=== PATIENT | female | born 1945 | race Caucasian/White ===

== ENCOUNTER 2023-02-09 13:20 | Outpatient (OUT) | payer MEDICARE, SELFPAY ==
[2023-02-05 11:14] LABS: Basophils Percent Auto 0.7 % (0.2-2.0); Eosinophils Absolute Auto 0.2 10^3/uL (0.0-0.7); Hematocrit 33.6 % (36.0-48.0); Hemoglobin 10.9 g/dL (12.0-16.0); Lymphocytes Absolute Auto 1.5 10^3/uL (1.2-3.8); Lymphocytes Percent Auto 34.7 % (20.5-60.0); Mean Corpuscular HGB Conc 32.4 g/dL (29.9-35.2); Mean Corpuscular Hemoglobin 26.9 pg (26.7-34.0); Mean Platelet Volume 10.1 fL (9.5-13.5); Monocytes Absolute Auto 0.4 10^3/uL (0.3-0.8); Monocytes Percent Auto 10.3 % (1.7-12.0); Neutrophils Absolute Auto 2.1 10^3/uL (1.4-6.5); Neutrophils Percent Auto 49.3 % (43.0-75.0); Platelet Count 222 10^3/uL (150-450); Red Blood Count 4.05 10^6/uL (4.20-5.40); Red Cell Distribution Width 13.1 % (11.0-15.0); White Blood Count 4.2 10^3/uL (4.0-11.0)
[2023-02-05 13:10] LABS: Alanine Aminotransferase 25 U/L (14-59); Albumin Globulin Ratio 1.2; Albumin Level 3.7 g/dL (3.4-5.0); Alkaline Phosphatase 63 U/L (46-116); Anion Gap 13.8; Aspartate Amino Transferase 17 U/L (15-37); BUN Creatinine Ratio 26.1; Bilirubin Total 0.4 mg/dL (0.2-1.0); Calcium 8.7 mg/dL (8.5-10.1); Chloride 107 mmol/L (98-107); Cholesterol 153 mg/dL (<=200); Estimated GFR (African America >60 (>=60); Estimated GFR (Non-African Ame >60 (>=60); Free T3 2.45 pg/mL (2.18-3.98); Glucose 122 mg/dL (74-106); HDL Cholesterol 36 mg/dL (40-60); Potassium 3.8 mmol/L (3.5-5.1); Sodium 143 mmol/L (136-145); Thyroid Stimulating Hormone 1.646 uIU/mL (0.358-3.740); Total Protein 6.7 g/dL (6.4-8.2); Triglycerides 200 mg/dL (<=150)
[2023-02-05 13:15] LABS: Chol HDL Ratio 4.3
[2023-02-05 14:40] LABS: Free T4 0.79 ng/dL (0.76-1.46)
[2023-02-05 15:32] LABS: Estimated Average Glucose 120 mg/dL; Glycohemoglobin A1C 5.8 % (4.5-6.2)
== END 2023-02-09 13:21 | disposition home or self-care (01) ==
LOC: LAB 13:20
PROVIDERS: PCP Family Medicine; Visit Provider Family Medicine
DX: Z00.00 Encounter for general adult medical examination without abnormal findings (principal); E78.5 Hyperlipidemia, unspecified; R53.83 Other fatigue; R73.09 Other abnormal glucose
CPT/HCPCS: 36415; 80053; 80061; 83036; 84439; 84443; 84481; 85025

== ENCOUNTER 2023-03-22 13:21 | Outpatient (OUT) | payer MEDICARE, SELFPAY | END 2023-03-22 13:22 | disposition home or self-care (01) | LOC: PST 13:22 | PROVIDERS: PCP Family Medicine; Visit Provider Surgery | DX: Z01.818 Encounter for other preprocedural examination (principal); Z86.010 Personal history of colon polyps ==

== ENCOUNTER 2023-04-04 06:41 | Day surgery (SDC) | payer MEDICARE, SELFPAY ==
--- NOTE | 2023-04-04 | OP_ITS ---
OPERATION DATE: ??04/04/2023 PREOPERATIVE DIAGNOSIS:? Personal history of colon polyps. POSTOPERATIVE DIAGNOSIS:? Sigmoid diverticulosis. PROCEDURE:? Colonoscopy to cecum. SURGEON:? Roberto Hollis M.D. ANESTHESIA:? Monitored anesthesia care. ESTIMATED BLOOD LOSS:? Zero. INDICATIONS AND CONSENT:? Patient is a 77-year-old female with personal history of colon polyps.? Indications, risks, benefits, alternatives of proceeding with colonoscopy were explained extensively to the patient, including the risks of bleeding, colon perforation or anesthetic complications.? All of her questions were answered.? Informed consent was obtained. PROCEDURE:? Patient brought to the operating room, placed in the left lateral decubitus position.? Monitored anesthesia care was provided.? Rectal exam was performed which showed no masses or blood.? The scope was inserted into the anal canal.? Under direct visualization was advanced.? With the aid of abdominal compression, it was advanced to the cecum where cecal markings were clearly identified.? It should be noted that the scope was changed to a pediatric scope due to spasm and tortuous colon, due to the diverticular disease.? Upon withdrawal of the scope, mucosal surfaces were carefully examined.? There was noted to be a good prep.? There were no mass lesions or polyps.? No inflammatory changes or ulcerations.? There was some moderate to severe sigmoid diverticulosis with some large mouth diverticula as well.? The scope was retroflexed in the anal canal.? There was no significant hemorrhoidal disease.? Scope was then withdrawn.? Patient tolerated procedure well, was sent to recovery room in good condition. no further surveillance colonoscopies should be required. CC:? Norman Lassiter M.D. [facility] CENTERLiliana
[2023-04-04 06:50] VITALS: BP 132/66; PULSE 57; RESP 16; TEMP 36.1; O2SAT 95; BMI 26.6
[2023-04-04] MEDS: LACTATED RINGER'S SOLUTION 1,000 ML 50 ML IV (07:19)
[2023-04-04 07:49] VITALS: BP 102/56; PULSE 52; RESP 16; TEMP 36.2; O2SAT 95
[2023-04-04 08:04] VITALS: BP 145/65; PULSE 56; RESP 16; O2SAT 96
[2023-04-04 08:19] VITALS: BP 145/70; PULSE 50; RESP 16; O2SAT 96
[2023-04-04 08:34] VITALS: BP 141/70; PULSE 50; RESP 16; O2SAT 96
[2023-04-04 08:49] VITALS: BP 133/66; PULSE 52; RESP 16; TEMP 36.2; O2SAT 96
--- NOTE | 2023-04-05 07:14 | PC.NURSE ---
Late entry: Vitals were monitored through out phase 2 as patient was hypotensive most of this phase.
== END 2023-04-04 08:49 | disposition home or self-care (01) ==
PROVIDERS: PCP Family Medicine; Visit Provider Surgery
PROC: (CPT 45378; principal; 2023-04-04 07:30)
DX: K57.30 Diverticulosis of large intestine without perforation or abscess without bleeding (principal); Z86.010 Personal history of colon polyps; I25.10 Atherosclerotic heart disease of native coronary artery without angina pectoris; I11.0 Hypertensive heart disease with heart failure; I50.30 Unspecified diastolic (congestive) heart failure; Z86.711 Personal history of pulmonary embolism; E78.00 Pure hypercholesterolemia, unspecified; Z79.899 Other long term (current) drug therapy
CPT/HCPCS: 45378; J2704

== ENCOUNTER 2023-04-18 07:59 | Outpatient (OUT) | payer MEDICARE, SELFPAY ==
--- NOTE | 2023-04-18 07:45 | NM_ITS ---
Patient: AMANDA KISER Exam Date: 04/18/2023 : 1945 Gender:F Ordering : DR Norman Lassiter . Admission #: [id number] Family : Order #: [id number] CLICK HERE TO VIEW EXAM RADIOLOGY REPORT PROCEDURE: NM JOSE FRANCISCO PERF SPECT REST STR COMPARISON: None. INDICATIONS: HYPERTENSION TECHNIQUE: Exam Description: Stress/Rest one day protocol gated SPECT Rest Imagin.1 mCi Tc-99m Cardiolite IV on 04/18/2023 Stress Imaging 30.4 mCi Tc-99m Cardiolite IV on 04/18/2023 Exercise Protocol: 0.4 mg Lexiscan given IV Heart Rate (bpm): Rest: 53 Max: 80 PMHR: 56 Blood Pressure: Rest: 140/86 Max: 162/80 Symptoms: Rest and peak stress ECG findings were normal and the exercise portion of the study was normal per attending physician Dr. De La Torre . For more details please see separate cardiac stress test report. FINDINGS: QUALITY OF STUDY: Excellent. PERFUSION DEFECT: None. LOCATION: N/A SIZE: N/A. SEVERITY: N/A. TYPE: N/A. WALL MOTION: Normal. LV SIZE: Normal. 74 mL. TID / TCD: None; 0.8 LVEF: Normal. Calculated EF 77%. SUMMARY: Myocardial perfusion imaging study is NORMAL. CONCLUSION: 1. Normal nuclear medicine myocardial perfusion scan. Dictated by: Rc Donohue M.D. on 04/19/2023 at 12:31 Approved by: Rc Donohue M.D. on 04/19/2023 at 12:38
[2023-04-18] MEDS: REGADENOSON 0.4 MG/5 ML SYRINGE IV (09:51)
--- NOTE | 2023-04-18 14:27 | P.STRESS_ITS ---
Stress Test Stress Test Allergies Allergy/AdvReac Type Severity Reaction Status Date / Time memantine [From Namenda] AdvReac Unknown Verified 03/22/23 11:34 Requesting physician: Norman Lassiter Procedure: Lexiscan Cardiolite stress test General Information: Reason for Stress Test: Chest Pain Cardiac History and Risk Factors: CAD, has a stent. Father had stroke Resting 12 - Lead Electrocardiogram: Rate & rhythm: Sinus bradycardia at a rate of 59. [place]: Normal T-waves: Normal ST-segments:Normal orientation Stress Test: Protocol: Erlin protocol was initiated, but due to fatigue and diaphoresis, the exercise component was unable to achieve target heart rate and therefore canceled.? Testing was changed to Lexiscan protocol, with injection of 0.4mg Lexiscan IV push followed by Cardiolite. Blood pressure: Initial: 140/86, Maximum: 162/80 Rate & rhythm: Patient remained in sinus rhythm during the exercise and recovery portions of the study.? The maximum heart rate was 80, which was 56% of the maximum predicted heart rate. Rare PACs noted. ST-segments & T-waves: There were no T-wave changes and no ST-segment changes when compared to the baseline EKG. Patient response/symptoms: The patient complained of fatigue, diaphoresis, and overheating . There were no symptoms similar to the chief complaint. Interpretation: This is a normal Lexiscan stress test without electrocardiographical evidence of ischemia. No reproducible chest pain. Cardiolite imaging interpretation will be reported separately. Clinical correlation required.?
== END 2023-04-18 08:00 | disposition home or self-care (01) ==
LOC: NM 08:00
PROVIDERS: PCP Family Medicine; Visit Provider Family Medicine
DX: R07.89 Other chest pain (principal); Z82.3 Family history of stroke; I25.10 Atherosclerotic heart disease of native coronary artery without angina pectoris
CPT/HCPCS: 78452; 93017; A9500; J2785

== ENCOUNTER 2023-04-24 10:08 | Outpatient (OUT) | payer MEDICARE, SELFPAY ==
--- NOTE | 2023-04-24 | MM_ITS ---
Patient: AMANDA KISER Exam Date: 04/24/2023 : 1945 Gender:F Ordering : DR Norman Lassiter . Admission #: [id number] Family : Order #: [id number] CLICK HERE TO VIEW EXAM RADIOLOGY REPORT PROCEDURE: MM TOMOSYNTHESIS SCREENING BI COMPARISON: MG MAMM SCREEN VICTOR MANUEL W CAD, 01/31/2018. MG MAMM VICTOR MANUEL SCRN W CAD DIG, 02/10/2013. INDICATIONS: Z12.31 Calculator Name NCI Breast Cancer Risk Assessment Tool 5 Year Breast Cancer Risk 1.10% Lifetime Breast Cancer Risk 2.00% Personal Breast Cancer No Personal Ovarian Cancer No Treatments None Family Cancers Sister with pancreatic cancer at age 84. LOCATION: [facility] BREAST COMPOSITION: Scattered areas fibroglandular density. FINDINGS: DIAGNOSTIC CATEGORY 1--NEGATIVE. NO CHANGE FROM COMPARISON ASSESSMENT. Scattered benign-appearing calcifications are present. Scattered benign-appearing lymph nodes are present. RIGHT BREAST: No significant suspicious finding. LEFT BREAST: No significant suspicious finding. RECOMMENDATIONS: ROUTINE MAMMOGRAM AND CLINICAL EVALUATION IN 12 MONTHS. PLEASE NOTE: A NORMAL MAMMOGRAM DOES NOT EXCLUDE THE POSSIBILITY OF BREAST CANCER. A CLINICALLY SUSPICIOUS PALPABLE LUMP SHOULD BE BIOPSIED. Dictated by: Bharathi Art MD on 04/24/2023 at 15:22 Approved by: Bharathi Art MD on 04/24/2023 at 15:23
--- NOTE | 2023-04-24 | US_ITS ---
The [address] [address] Patient Name: AMANDA KISER MRN: [id number] date: 1945 Sex: F Assigned Patient Location: [place] Current Patient Location: [place] Accession/Order Number: [id number] Exam Date: 04/24/2023 10:05 Report Date: 04/24/2023 11:24 At the request of: MILAGROS PORTER Procedure: US renal bladder EXAM: US renal bladder HISTORY: Unspecified urinary incontinence R32 COMPARISON: None. TECHNIQUE: Ultrasound of the kidneys FINDINGS: The right kidney measures 9.8 x 4.3 x 4.2 cm and appears normal. The left kidney measures 11.9 x 4.9 x 4.8 cm and contains a hyperechoic focus measuring up to 0.3 cm. There is no hydronephrosis. The urinary bladder is not fully distended. Prevoid volume is 18.3 cc. Post void volume was 2.2 cc. US/US renal bladder IMPRESSION: Left nephrolithiasis without hydronephrosis. Electronically authenticated by: DAVID MARQUEZ Date: 04/24/2023 11:24
== END 2023-04-24 10:09 | disposition home or self-care (01) ==
LOC: US 10:09
PROVIDERS: PCP Family Medicine; Visit Provider Family Medicine
DX: Z12.31 Encounter for screening mammogram for malignant neoplasm of breast (principal); I10 Essential (primary) hypertension; R32 Unspecified urinary incontinence; Z80.8 Family history of malignant neoplasm of other organs or systems; N20.0 Calculus of kidney
CPT/HCPCS: 76770; 77063; 77067

== ENCOUNTER 2024-02-08 15:57 | Outpatient (OUT) | payer MEDICARE, SELFPAY ==
[2024-02-08 16:20] LABS: Basophils Percent Auto 0.5 % (0.2-2.0); Eosinophils Absolute Auto 0.2 10^3/uL (0.0-0.7); Eosinophils Percent Auto 4.2 % (0.9-7.0); Hematocrit 41.8 % (36.0-48.0); Hemoglobin 13.5 g/dL (12.0-16.0); Immature Granulocytes Abs Auto 0.01 10^3/uL (0.00-0.03); Immature Granulocytes Pct Auto 0.2 % (0.0-0.5); Lymphocytes Absolute Auto 1.9 10^3/uL (1.2-3.8); Lymphocytes Percent Auto 34.3 % (20.5-60.0); Mean Corpuscular HGB Conc 32.3 g/dL (29.9-35.2); Mean Corpuscular Hemoglobin 29.3 pg (26.7-34.0); Mean Corpuscular Volume 90.7 fL (81.0-99.0); Mean Platelet Volume 9.9 fL (9.5-13.5); Monocytes Absolute Auto 0.4 10^3/uL (0.3-0.8); Monocytes Percent Auto 7.8 % (1.7-12.0); Neutrophils Absolute Auto 2.9 10^3/uL (1.4-6.5); Platelet Count 221 10^3/uL (150-450); Red Blood Count 4.61 10^6/uL (4.20-5.40); Red Cell Distribution Width 12.4 % (11.0-15.0); White Blood Count 5.5 10^3/uL (4.0-11.0)
[2024-02-08 16:27] LABS: Estimated Average Glucose 114 mg/dL; Glycohemoglobin A1C 5.6 % (4.5-6.2)
[2024-02-08 16:49] LABS: Alanine Aminotransferase 26 U/L (14-59); Albumin Globulin Ratio 1.2; Albumin Level 3.8 g/dL (3.4-5.0); Alkaline Phosphatase 68 U/L (46-116); Anion Gap 10.6; Aspartate Amino Transferase 18 U/L (15-37); BUN Creatinine Ratio 24.1; Bilirubin Total 0.6 mg/dL (0.2-1.0); Calcium 9.1 mg/dL (8.5-10.1); Carbon Dioxide 28.4 mmol/L (21.0-32.0); Chloride 104 mmol/L (98-107); Chol HDL Ratio 4.4; Cholesterol 169 mg/dL (<=200); Estimated GFR (African America >60 (>=60); Estimated GFR (Non-African Ame >60 (>=60); Free T3 2.21 pg/mL (2.18-3.98); Globulin 3.2 g/dL; Glucose 89 mg/dL (74-106); HDL Cholesterol 38 mg/dL (40-60); Sodium 139 mmol/L (136-145); Thyroid Stimulating Hormone 2.615 uIU/mL (0.358-3.740); Triglycerides 218 mg/dL (<=150); VLDL CHOLESTEROL 43.6 mg/dL
== END 2024-02-08 15:58 | disposition home or self-care (01) ==
LOC: LAB 15:57
PROVIDERS: PCP Family Medicine; Visit Provider Family Medicine
DX: E78.5 Hyperlipidemia, unspecified (principal); R53.83 Other fatigue; I10 Essential (primary) hypertension; E11.65 Type 2 diabetes mellitus with hyperglycemia
CPT/HCPCS: 36415; 80053; 80061; 83036; 84436; 84443; 84481; 85025

== ENCOUNTER 2024-06-25 11:32 | Outpatient (OUT) | payer MEDICARE, SELFPAY ==
--- NOTE | 2024-06-25 11:40 | MM_ITS ---
Patient Name: AMANDA KISER MR#: [id number] : 1945 Exam Date: 06/25/2024 Ordering Doctor: DR Norman Lassiter . RADIOLOGY REPORT PROCEDURE: MM TOMOSYNTHESIS SCREENING BI COMPARISON: MM TOMOSYNTHESIS SCREENING BI, 04/24/2023. MG MAMM SCREEN VICTOR MANUEL W CAD, 01/31/2018. INDICATIONS: Screening Calculator Name NCI Breast Cancer Risk Assessment Tool 5 Year Breast Cancer Risk 1.10% Lifetime Breast Cancer Risk 1.70% Personal Breast Cancer No Personal Ovarian Cancer No Treatments None Family Cancers Sister with pancreatic cancer at age 84. LOCATION: [facility] BREAST COMPOSITION: There are scattered areas of fibroglandular density. FINDINGS: DIAGNOSTIC CATEGORY 2--BENIGN FINDING. NO CHANGE FROM COMPARISON. Scattered benign-appearing calcifications are present. Scattered benign-appearing lymph nodes are present. RIGHT BREAST: No significant suspicious finding. LEFT BREAST: No significant suspicious finding. RECOMMENDATIONS: ROUTINE MAMMOGRAM AND CLINICAL EVALUATION IN 12 MONTHS. PLEASE NOTE: A NORMAL MAMMOGRAM DOES NOT EXCLUDE THE POSSIBILITY OF BREAST CANCER. A CLINICALLY SUSPICIOUS PALPABLE LUMP SHOULD BE BIOPSIED. Dictated by: Bharathi Art MD on 06/25/2024 at 14:03 Approved by: Bharathi Art MD on 06/25/2024 at 14:04
--- OUTSIDE RECORDS SUMMARY | 2024-06-25 11:44 | XMS_ITS | CCD ---
Author Organization [facility] Care Team Providers Care Moss Gatherer Name Role Phone GERMAN, DR LINARES Primary Care Unavailable HOY, DR LINARES Admitting Unavailable HOY, DR LINARES Consulting Unavailable HOY, DR LINARES Attending Unavailable HOY, DR LINARES Consulting Unavailable HOY, DR LINARES Primary Care Unavailable HOY, DR LINARES Attending Unavailable HOY, DR LINARES Admitting Unavailable HOY, DR LINARES Consulting Unavailable HOY, DR LINARES Attending Unavailable HOY, DR LINARES Admitting Unavailable HOY, DR LINARES Primary Care Unavailable HOY, DR LINARES Consulting Unavailable HOY, DR LINARES Admitting Unavailable HOY, DR LINARES Attending Unavailable HOY, DR LINARES Primary Care Unavailable HOY, DR LINARES Consulting Unavailable HOY, DR LINARES Admitting Unavailable HOY, DR LINARES Attending Unavailable HOY, DR LINARES Primary Care Unavailable HOY, DR LINARES Consulting Unavailable HOY, DR LINARES Admitting Unavailable HOY, DR LINARES Attending Unavailable HOY, DR LINARES Primary Care Unavailable HOY, DR LINARES Admitting Unavailable HOY, DR LINARES Consulting Unavailable HOY, DR LINARES Attending Unavailable HOY, DR LINARES Primary Care Unavailable WEST, DR DIMITRIOS Ware Consulting Unavailable HOY, DR LINARES Primary Care Unavailable HOY, DR LINARES Admitting Unavailable HOY, DR LINARES Consulting Unavailable HOY, DR LINARES Attending Unavailable HOY, DR LINARES Primary Care Unavailable HOY, DR LINARES Admitting Unavailable HOY, DR LINARES Consulting Unavailable HOY, DR LINARES Attending Unavailable HoyNorman Referring Unavailable NILLRobetro Attending Unavailable NILLRoberto Attending Unavailable HoyNorman Referring Unavailable HoyNorman Referring Unavailable NILLRoberto Attending Unavailable NILLRoberto Attending Unavailable Allergies Allergy Classification Reported Allergen(s) Allergy Type Date of Onset Reaction(s) Facility (1 source) Memantine; Translations: [Namenda] Drug Allergy [facility] Repository Problems Active Problems Problem Classification Problem Date Documented Date Episodic/Chronic Congestive heart failure; nonhypertensive (1 source) Unspecified diastolic (congestive) heart failure; Translations: [UNSPECIFIED DIASTOLIC HEART FAILURE] Onset: 10-28-2021 Chronic Coronary atherosclerosis and other heart disease (1 source) Atherosclerotic heart disease of [place] coronary artery without angina pectoris; Translations: [ASHD DEERING CA W/O ANGINA PECTORIS] Onset: 10-28-2021 Chronic Disorders of lipid metabolism (2 sources) Hyperlipidemia, unspecified; Translations: [Pure hypercholesterolemia, unspecified] Onset: 10-28-2021 Chronic Essential hypertension (1 source) Essential (primary) hypertension; Translations: [ESSENTIAL PRIMARY HYPERTENSION] Onset: 10-24-2021 Chronic Genitourinary symptoms and ill-defined conditions (1 source) Unspecified urinary incontinence; Translations: [UNSPECIFIED URINARY INCONTINENCE] Onset: 10-28-2021 Chronic Hypertension with complications and secondary hypertension (1 source) Hypertensive heart disease with heart failure; Translations: [HTN HEART DISEASE W/HEART FAIL] Onset: 10-28-2021 Chronic Nutritional deficiencies (1 source) Vitamin D deficiency, unspecified; Translations: [VITAMIN D DEFICIENCY UNSPECIFIED] Onset: 10-28-2021 Chronic Thyroid disorders (4 sources) Hypothyroidism, unspecified; Translations: [HYPOTHYROIDISM UNSPECIFIED] Onset: 12-26-2021 Chronic Unclassified (4 sources) CONTACT W/AND (SUSP) EXPOS COVID-19; Translations: [CONTACT W/AND (SUSP) EXPOS COVID-19] Onset: 03-14-2022 Unclassified (3 sources) COUGH, UNSPECIFIED; Translations: [COUGH, UNSPECIFIED] Onset: 03-14-2022 Past or Other Problems Problem Classification Problem Date Documented Date Episodic/Chronic Coronary atherosclerosis and other heart disease (1 source) Presence of coronary angioplasty implant and graft; Translations: [PRESENCE COR ANGPLSTY IMPLANT AND GRAFT] Onset: 10-28-2021 Episodic Deficiency and other anemia (1 source) Anemia, unspecified; Translations: [ANEMIA UNSPECIFIED] Onset: 10-28-2021 Episodic Diabetes mellitus without complication (1 source) Other abnormal glucose; Translations: [OTHER ABNORMAL GLUCOSE] Onset: 10-28-2021 Episodic Genitourinary symptoms and ill-defined conditions (4 sources) Dysuria; Translations: [DYSURIA] Onset: 12-01-2021 Episodic Malaise and fatigue (1 source) Other fatigue; Translations: [OTHER FATIGUE] Onset: 12-06-2021 Episodic Noninfectious gastroenteritis (5 sources) Noninfective gastroenteritis and colitis, unspecified; Translations: [NONINFECTIVE GE AND COLITIS UNS] Onset: 10-27-2021 Episodic Nonspecific chest pain (1 source) Chest pain, unspecified; Translations: [CHEST PAIN UNSPECIFIED] Onset: 10-28-2021 Episodic Other skin disorders (5 sources) Generalized hyperhidrosis; Translations: [GENERALIZED HYPERHIDROSIS] Onset: 10-26-2021 Episodic Other upper respiratory infections (1 source) Acute sinusitis, unspecified; Translations: [ACUTE SINUSITIS UNSPECIFIED] Onset: 10-28-2021 Episodic Residual codes; unclassified (1 source) Other amnesia; Translations: [OTHER AMNESIA] Onset: 10-28-2021 Episodic Unclassified (1 source) CONTACT W/AND (SUSP) EXPOS COVID-19; Translations: [CONTACT W/AND (SUSP) EXPOS COVID-19] Onset: 03-22-2022 Unclassified (1 source) COUGH, UNSPECIFIED; Translations: [COUGH, UNSPECIFIED] Onset: 03-13-2022 Results Test Name Value Interpretation Reference Range Facility Outside Colonoscopyon 2022 Outside Colonoscopy [id number]:1 27 Normal [facility] Facesheeton 02-14-2023 Facesheet [id number]: 127 Normal [facility] Ambulatory Visit Summaryon 0 02-13-2023 Ambulatory Visit Summary AMANDA KISER :1945 Visit Date:02/13/2023 Ambulatory Visit Instructions Your Diagnosis Personal history of colonic polyps Your Care Team Attending Physician - NIMA REEVES, Roberto Singh Primary Care Physician - Norman Porter MD Referring Physician - Norman Porter MD This Is Your Medications List diclofenac (diclofenac sodium 75 mg Oral EC Tab) fluoxetine (FLUoxetine 20 mg Cap) liothyronine (liothyronine 5 mcg Tab) metoprolol (metoprolol tartrate 100 mg Tab) Contact prescribing physician if questions or concerns donepezil (donepezil 10 mg oral tablet, disintegrating) fluticasone nasal (Flonase 0.05 mg/inh Shushan) hyoscyamine (hyoscyamine 0.125 mg oral tablet, disintegrating) pantoprazole (Protonix 40 mg Tab-DR) simvastatin (simvastatin 40 mg Tab) Procedures Performed Colonoscopy (07/03/2018), Angioplasty, Colonoscopy, Placement of stent in cardiac conduit, Tubal ligation. Discharge Vitals Heart Rate (Peripheral) 72 Respiratory Rate 16 Blood Pressure 118/72 Height 167.6 cm Height 66 in Weight 80.4 kg Weight 176.88 lb BMI 28.62 Medications What How Much When Instructions Unchanged diclofenac (diclofenac sodium 75 mg Oral EC Tab) 1 Tablets By Mouth 2 times a day Unchanged fluoxetine (FLUoxetine 20 mg Cap) 1 Capsules By Mouth Every day Unchanged liothyronine (liothyronine 5 mcg Tab) 1 Tablets By Mouth Every day Unchanged metoprolol (metoprolol tartrate 100 mg Tab) 1 Tablets By Mouth 2 times a day Unchanged donepezil (donepezil 10 mg oral tablet, disintegrating) 1 Tablets By Mouth Once a day (at bedtime) Contact prescribing physician if questions or concerns Unchanged fluticasone nasal (Flonase 0.05 mg/ inh Shushan) 1 Sprays Nasal Inhalation 2 times a day Contact prescribing physician if questions or concerns Unchanged hyoscyamine (hyoscyamine 0.125 mg oral tablet, disintegrating) 1-2 tabs By Mouth 4 times a day as needed for abdominal pain Contact prescribing physician if questions or concerns Unchanged pantoprazole (Protonix 40 mg Tab-DR) 1 Tablets By Mouth Every day Contact prescribing physician if questions or concerns Unchanged simvastatin (simvastatin 40 mg Tab) 1 Tablets By Mouth Once a day (in the evening) Contact prescribing physician if questions or concerns Allergies Namenda (Unknown) Problems Ongoing - Any problem that you are currently receiving treatment for. Anemia BMI 28.0-28.9,adult Chronic diarrhea Coronary artery disease Diastolic CHF Eczema Essential hypertension Generalized hyperhidrosis History of colon polyps History of pulmonary embolism Hypertensive heart disease with heart failure Osteopenia Overweight Personal history of colonic polyps Poor short term memory Pure hypercholesterolemia Normal [facility] Physician Referralon 023 Physician Referral [id number]: 127 Normal [facility] Covid-19 PCR (CVDTBH)on 02-22 SARS-CoV-2 (COVID-19) RNA ASHKAN+probe Ql (Unsp spec) Not detected Normal NOT DETECTED [facility] Comment on above: Result Comment: This test is not yet approved or cleared by the [place] FDA. When there are no FDA-approved or cleared tests available, and other criteria are met, FDA can make tests available under an emergency access mechanism called an Emergency Use Authorization (EUA). The EUA for this test is supported by the [place] of Health and Human Service's (HHS's) declaration that circumstances exist to justify the emergency use of in vitro diagnostics for the detection and/or diagnosis of the virus that causes COVID-19. This EUA will remain in effect (meaning this test can be used) for the duration of the COVID-19 declaration justifying emergency of IVDs, unless it is terminated or revoked by FDA (after which the test may no longer be used). When diagnostic testing is negative, the possibility of a false negative should be considered in the context of a patient's recent exposures and the presence of clinical signs and symptoms consistent with SARS-CoV-2. Performed By: #### A 1C #### [facility] [address] [place] [address] Dr. Vivi Stovall Covid-19 PCR (CVDTBH)on 02-21 SARS-CoV-2 (COVID-19) RNA ASHKAN+probe Ql (Unsp spec) Not detected Normal NOT DETECTED [facility] Comment on above: Result Comment: When diagnostic testing is negative, the possibility of a false negative should be considered in the context of a patient's recent exposures and the presence of clinical signs and symptoms consistent with SARS-CoV-2. This test is not yet approved or cleared by the [place] FDA. When there are no FDA-approved or cleared tests available, and other criteria are met, FDA can make tests available under an emergency access mechanism called an Emergency Use Authorization (EUA). The EUA for this test is supported by the [place] of Health and Human Service's declaration that circumstances exist to justify the emergency use of in vitro diagnostics for the detection and/or diagnosis of the virus that causes COVID-19. This EUA will remain in effect for the duration of the COVID-19 declaration justifying emergency of IVDs, unless it is terminated or revoked by the FDA (after which the test may no longer be used). Performed By: #### U AMIC #### [facility] [address] [place] [address] Dr. Vivi Stovall INFLUENZA A AND B AGon 03-13 INFLUENZA A AG Negative Normal NEGATIVE SEE COMMENT [facility] Comment on above: Performed By: #### A 1C #### [facility] [address] [place] [address] Dr. Vivi Stovall INFLUENZA B AG Negative Normal NEGATIVE SEE COMMENT [facility] Comment on above: Performed By: #### A 1C #### [facility] [address] [place] [address] Dr. Vivi Stovall INTERNAL CONTROLS Within Normal Limits Normal Wi thin Normal Limits [facility] Comment on above: Performed By: #### A 1C #### [facility] [address] [place] [address] Dr. Vivi Stovall T4 LABCORPon 12-27-2021 T4 [Mass/Vol] 4.9 ug/dL Normal 4.5-12.0 [facility] Comment on above: Performed By: #### U AMIC #### [facility] [address] [place] [address] Dr. Vivi Stovall FREE T3on 12-26-2021 FREE T3 2.16 pg/mlL Critically low 2.18-3.98 [facility] Comment on above: Performed By: #### A 1C #### [facility] [address] [place] [address] Dr. Vivi Stovall TSHon 12-26-2021 TSH 1.799 uIU/mL Normal 0.358-3.740 [facility] Comment on above: Performed By: #### A 1C #### [facility] [address] [place] [address] Dr. Vivi Stovall TSH RANGE SEE BELOW Normal [facility] Comment on above: Result Comment: <0.3 4 UIU/ml HYPERTHYROID 0.34-5.60 UIU/ml EUTHYROID >5.60 UIU/ml HYPOTHYROID Performed By: #### A 1C #### [facility] [address] [place] [address] Dr. Vivi Stovall CULTURE URINEon 12-03-2021 CULTURE URINE Isolate 1 Escherichia coli 50,000 CFU/ML OF ORGANISM 1 Escherichia coli ANTIBIOTIC M.I.C RX STATUS Ampicillin <=2 S F Ampicillin/Sulbactam <=2 S F Piperacillin/Tazobactam <=4 S F Cefazolin <=4 S F Ceftazidime <=1 S F Ceftriaxone <=1 S F Ertapenem <=0.5 S F Imipenem <=0.25 S F Amikacin <=2 S F Gentamicin <=1 S F Tobramycin <=1 S F Ciprofloxacin <=0.25 S F Levofloxacin <=0.12 S F Nitrofurantoin <=16 S F Trimethoprim/Sulfamethox azole <=20 S F Normal [facility] Comment on above: Performed By: #### U AMIC #### [facility] [address] [place] [address] Dr. Vivi Stovall FREE T3on 12-01-2021 FREE T3 1.32 pg/mlL Critically low 2.18-3.98 [facility] Comment on above: Performed By: #### A 1C #### [facility] [address] [place] [address] Dr. Vivi Stovall T4on 12-01-2021 T4 [Mass/Vol] 7.30 ug/dL Normal 4.80-13.90 [facility] Comment on above: Performed By: #### A 1C #### [facility] [address] [place] [address] Dr. Vivi Stovall TSHon 12-01-2021 TSH 2.374 uIU/mL Normal 0.358-3.740 [facility] Comment on above: Performed By: #### A 1C #### [facility] [address] [place] [address] Dr. Vivi Stovall TSH RANGE SEE BELOW Normal [facility] Comment on above: Result Comment: <0.3 4 UIU/ml HYPERTHYROID 0.34-5.60 UIU/ml EUTHYROID >5.60 UIU/ml HYPOTHYROID Performed By: #### A 1C #### [facility] [address] [place] [address] Dr. Vivi Stovall UA RANDOM W/MICROSCOPICon BACTERIA MODERATE Abnormal NONE SEEN [facility] Comment on above: Performed By: #### U AMIC #### [facility] [address] [place] [address] Dr. Vivi Stovall Bilirubin Ql (U) Negative Normal NEGATIVE [facility] Comment on above: Performed By: #### U AMIC #### [facility] [address] [place] [address] Dr. Vivi Stovall CAST SEEN Abnormal NONE SEEN [facility] Comment on above: Performed By: #### U AMIC #### [facility] [address] [place] [address] Dr. Vivi Stovall Clarity (U) CLEAR Normal CLEAR [facility] Comment on above: Performed By: #### U AMIC #### [facility] [address] [place] [address] Dr. Vivi Stovall Color (U) DK. YELLOW Normal YELLOW [facility] Comment on above: Performed By: #### U AMIC #### [facility] [address] [place] [address] Dr. Vivi Stovall Crystals LM Nom (Urine sed) NONE SEEN Normal NONE SEEN [facility] Comment on above: Performed By: #### U AMIC #### [facility] [address] [place] [address] Dr. Vivi Stovall Epithelial cells LM Ql (Urine sed) MODERATE Abnormal NONE SEEN /RARE [facility] Comment on above: Performed By: #### U AMIC #### [facility] [address] [place] [address] Dr. Vivi Stovall Glucose Ql (U) Negative Normal NEGATIVE [facility] Comment on above: Performed By: #### U AMIC #### [facility] [address] [address] [address] Vivi Stovall Hemoglobin Ql (U) Negative Normal NEGATIVE [facility] Comment on above: Performed By: #### U AMIC #### [facility] [address] [address] [address] Vivi Stovall Ketones Ql (U) 15 mg/dl Abnormal NEGATIVE [facility] Comment on above: Performed By: #### U AMIC #### [facility] [address] [address] [address] Vvii Stovall LEUKOCYTES SMALL Abnormal NEGATIVE [facility] Comment on above: Performed By: #### U AMIC #### [facility] [address] [address] [address] Vivi Stovall MUCOUS TRACE Abnormal NONE SEEN [facility] Comment on above: Performed By: #### U AMIC #### [facility] [address] [address] [address] Vivi Stovall Nitrite Ql (U) Negative Normal NEGATIVE [facility] Comment on above: Performed By: #### U AMIC #### [facility] [address] [address] [address] Vivi Stovall pH (U) 5.5 [pH] Normal 5-9 [facility] Comment on above: Performed By: #### U AMIC #### [facility] [address] [address] [address] Vivi Stovall RBC 2-5 Abnormal 0-2 [facility] Comment on above: Performed By: #### U AMIC #### [facility] [address] [address] [address] Vivi Stovall SPEC GRAVITY 1.025 Normal 1.005-<=1.025 [facility] Comment on above: Performed By: #### U AMIC #### [facility] [address] [address] [address] Vivi Stovall UA PROTEIN TRACE Normal NEGATIVE/ TRACE [facility] Comment on above: Performed By: #### U AMIC #### [facility] [address] [place] [address] Dr. Vivi Stovall Urobilinogen Qn (U) 1.0 {Jazmyne'U}/dL Normal 0.2 - 1. 0 [facility] Comment on above: Performed By: #### U AMIC #### [facility] [address] [place] [address] Dr. Vivi Stovall WBC 5-10 Abnormal NONE SEEN [facility] Comment on above: Performed By: #### U AMIC #### [facility] [address] [place] [address] Dr. Vivi Stovall CULTURE URINEon 10-28-2021 CULTURE URINE Isolate 1 Escherichia coli >100,000 cfu/mL of ORGANISM 1 Escherichia coli ANTIBIOTIC M.I.C RX STATUS Ampicillin <=2 S F Ampicillin/Sulbactam <=2 S F Piperacillin/Tazobactam <=4 S F Cefazolin <=4 S F Ceftazidime <=1 S F Ceftriaxone <=1 S F Ertapenem <=0.5 S F Imipenem <=0.25 S F Amikacin <=2 S F Gentamicin <=1 S F Tobramycin <=1 S F Ciprofloxacin <=0.25 S F Levofloxacin <=0.12 S F Nitrofurantoin <=16 S F Trimethoprim/Sulfamethox azole <=20 S F Normal [facility] Comment on above: Performed By: #### A 1C #### [facility] [address] [place] [address] Dr. Vivi Stovall INSULINon 10-27-2021 Insulin 14.7 uIU/mL Normal 2.6-24.9 [facility] Comment on above: Performed By: #### I NSULIN #### [facility] [address] [place] [address] Dr. Vivi Stovall BNPon 10-26-2021 Natriuretic peptide B (Bld) [Mass/Vol] 166.0 pg/mL Normal <=1,800.0 [facility] Comment on above: Performed By: #### C MP, BNP, LIPID, T7, TSH #### [facility] [address] [place] [address] Dr. Vivi Stovall C. DIFF PCRon 10-26-2021 C. DIFFICILE PCR Negative Normal NEGATIVE [facility] Comment on above: Performed By: #### U AMIC #### [facility] [address] [address] [address] Vivi Stovall CBC AUTO DIFFon 10-26-2021 BASO # 0.0 103/ul Normal 0.0-0.1 [facility] Comment on above: Performed By: #### U AMIC #### [facility] [address] [place] [address] Dr. Vivi Stovall Basophils/100 WBC (Bld) 0.7 % Normal 0.2-2.0 [facility] Comment on above: Performed By: #### U AMIC #### [facility] [address] [place] [address] Dr. Vivi Stovall EO # 0.3 103/ul Normal 0.0-0.7 [facility] Comment on above: Performed By: #### U AMIC #### [facility] [address] [place] [address] Dr. Vivi Stovall Eosinophils/100 WBC (Bld) 6.1 % Normal 0.9-7.0 [facility] Comment on above: Performed By: #### U AMIC #### [facility] [address] [place] [address] Dr. Vivi Stovall Erythrocyte distribution width (RBC) [Ratio] 14.0 % Normal 11.0-15.0 [facility] Comment on above: Performed By: #### U AMIC #### [facility] [address] [place] [address] Dr. Vivi Stovall Hematocrit (Bld) [Volume fraction] 41.0 % Normal 36.0-48.0 [facility] Comment on above: Performed By: #### U AMIC #### [facility] [address] [place] [address] Dr. Vivi Stovall Hemoglobin (Bld) [Mass/Vol] 13.7 g/dL Normal 12.0-16.0 [facility] Comment on above: Performed By: #### U AMIC #### [facility] [address] [address] [address] Vivi Stovall IG # 0.00 10e3/ul Normal 0.00-0.03 [facility] Comment on above: Performed By: #### U AMIC #### [facility] [address] [address] [address] Vivi Stovall IG % 0.0 % Normal 0.0-0.5 [facility] Comment on above: Performed By: #### U AMIC #### [facility] [address] [address] [address] Vivi Stovall LYMPH # 1.6 103/ul Normal 1.2-3.8 [facility] Comment on above: Performed By: #### U AMIC #### [facility] [address] [place] [address] Dr. Vivi Stovall Lymphocytes/100 WBC (Bld) 35.4 % Normal 20.5-60.0 [facility] Comment on above: Performed By: #### U AMIC #### [facility] [address] [address] [address] Vivi Stovall MANUAL DIFF REQ NO Normal [facility] Comment on above: Performed By: #### U AMIC #### [facility] [address] [address] [address] Vivi Stovall MCH (RBC) [Entitic mass] 29.2 pg Normal 26.7-34.0 [facility] [facility] Comment on above: Performed By: #### U AMIC #### [facility] [address] [address] [address] Vivi Stovall MCHC (RBC) [Mass/Vol] 33.4 g/dL Normal 29.9-35.2 [facility] Comment on above: Performed By: #### U AMIC #### [facility] [address] [address] [address] Vivi Stovall MCV (RBC) [Entitic vol] 87.4 fL Normal 81.0-99.0 [facility] Comment on above: Performed By: #### U AMIC #### [facility] [address] [address] [address] Vivi Stovall MONO # 0.5 103/ul Normal 0.3-0.8 [facility] Comment on above: Performed By: #### U AMIC #### [facility] [address] [address] [address] Vivi Stovall Monocytes/100 WBC (Bld) 10.5 % Normal 1.7-12.0 [facility] Comment on above: Performed By: #### U AMIC #### [facility] [address] [place] [address] Dr. Vivi Stovall NEUT # 2.2 103/ul Normal 1.4-6.5 [facility] Comment on above: Performed By: #### U AMIC #### [facility] [address] [place] [address] Dr. Vivi Stovall Neutrophils/100 WBC (Bld) 47.3 % Normal 43.0-75.0 [facility] Comment on above: Performed By: #### U AMIC #### [facility] [address] [place] [address] Dr. Vivi Stovall Platelet mean volume (Bld) [Entitic vol] 9.4 fL Critically low 9.5-13.5 [facility] Comment on above: Performed By: #### U AMIC #### [facility] [address] [place] [address] Dr. Vivi Stovall PLT 220 103/ul Normal 150-450 [facility] Comment on above: Performed By: #### U AMIC #### [facility] [address] [place] [address] Dr. Vivi Stovall RBC 4.69 106/ul Normal 4.20-5.40 [facility] Comment on above: Performed By: #### U AMIC #### [facility] [address] [place] [address] Dr. Vivi Stovall WBC 4.6 103/ul Normal 4.0-11.0 [facility] Comment on above: Performed By: #### U AMIC #### [facility] [address] [place] [address] Dr. Viiv Stovall FREE THYROXINE INDEX T7on FTI 3.26 Normal [facility] Comment on above: Performed By: #### C MP, BNP, LIPID, T7, TSH #### [facility] [address] [place] [address] Dr. Vivi Stovall T3U 34.0 % Normal 23.5-40.5 [facility] Comment on above: Performed By: #### C MP, BNP, LIPID, T7, TSH #### [facility] [address] [place] [address] Dr. Vivi Stovall T4 [Mass/Vol] 9.60 ug/dL Normal 5.53-11.00 [facility] Comment on above: Performed By: #### C MP, BNP, LIPID, T7, TSH #### [facility] [address] [place] [address] Dr. Vivi Stovall GI PANEL (PCR)on 10-26-2021 Adenovirus F 40/41 Not detected Normal NOT DETECTED [facility] Comment on above: Performed By: #### G IPANEL #### [facility] [address] [place] [address] Dr. Vivi Stovall Astrovirus Not detected Normal NOT DETECTED [facility] Comment on above: Performed By: #### G IPANEL #### [facility] [address] [place] [address] Dr. Vivi Avelar. Diff toxin A/B Not detected Normal NOT DETECTED [facility] Comment on above: Performed By: #### G IPANEL #### [facility] [address] [place] [address] Dr. Vivi Stovall Campylobacter Not detected Normal NOT DETECTED [facility] Comment on above: Performed By: #### G IPANEL #### [facility] [address] [place] [address] Dr. Vivi Stovall Cryptosporidium Not detected Normal NOT DETECTED [facility] Comment on above: Performed By: #### G IPANEL #### [facility] [address] [place] [address] Dr. Vivi Stovall Cyclos. Cayetanensis Not detected Normal NOT DETECTED [facility] Comment on above: Performed By: #### G IPANEL #### [facility] [address] [address] [address] Vivi Stovall E. Coli O157 Not Applicable Normal Not Applicable [facility] Comment on above: Performed By: #### G IPANEL #### [facility] [address] [address] [address] Vivi Stovall E. histolytica Not detected Normal NOT DETECTED [facility] Comment on above: Performed By: #### G IPANEL #### [facility] [address] [address] [address] Vivi Stovall EAEC Not detected Normal NOT DETECTED [facility] Comment on above: Performed By: #### G IPANEL #### [facility] [address] [place] [address] Dr. Vivi Stovall EIEC Not detected Normal NOT DETECTED [facility] Comment on above: Performed By: #### G IPANEL #### [facility] [address] [place] [address] Dr. Vivi Stovall EPEC Not detected Normal NOT DETECTED [facility] Comment on above: Performed By: #### G IPANEL #### [facility] [address] [place] [address] Dr. Vivi Stovall ETEC Not detected Normal NOT DETECTED [facility] Comment on above: Performed By: #### G IPANEL #### [facility] [address] [place] [address] Dr. Vivi Stovall G. Lamblia Not detected Normal NOT DETECTED [facility] Comment on above: Performed By: #### G IPANEL #### [facility] [address] [place] [address] Dr. Vivi SANTOSANEL CONTROLS PASSED Normal [facility] Comment on above: Performed By: #### G IPANEL #### [facility] [address] [place] [address] Dr. Vivi SANTOSNL DOUGIE HEADER GI PANEL BACTERIA Normal T [facility] Comment on above: Performed By: #### G IPANEL #### [facility] [address] [address] [address] Vivi HENRY ECOLI GI PANEL DIARRHEAGEN IC E.COLI / SHIGELLA Normal [facility] Comment on above: Performed By: #### G IPANEL #### [facility] [address] [address] [address] Vivi HENRY INFO SEE BELOW Normal [facility] Comment on above: Result Comment: EAEC - Enteroaggregative E. Coli EPEC- Enteropathogenic E. Coli ETEC- Enterotoxigenic E. Coli lt/st STEC- Shigella-like toxin-producing E. Coli stx1/stx2 EIEC- Shigella/Enteroinvasive E. Coli Performed By: #### G IPANEL #### [facility] [address] [address] [address] Vivi HENRY PARASITES GI PANEL PARASITES Normal [facility] Comment on above: Performed By: #### G IPANEL #### [facility] [address] [address] [address] Vivi HENRY VIRUS GI PANEL VIRUSES Normal [facility] Comment on above: Performed By: #### G IPANEL #### [facility] [address] [address] [address] Vivi Stovall Norovirus GI/GII Not detected Normal NOT DETECTED [facility] Comment on above: Performed By: #### G IPANEL #### [facility] [address] [address] [address] Vivi Stovall P. Shigelloides Not detected Normal NOT DETECTED [facility] Comment on above: Performed By: #### G IPANEL #### [facility] [address] [place] [address] Dr. Vivi Stovall Rotavirus A Not detected Normal NOT DETECTED [facility] Comment on above: Performed By: #### G IPANEL #### [facility] [address] [place] [address] Dr. Vivi Stovall Salmonella Not detected Normal NOT DETECTED [facility] Comment on above: Performed By: #### G IPANEL #### [facility] [address] [address] [address] Vivi Stovall Sapovirus Not detected Normal NOT DETECTED [facility] Comment on above: Performed By: #### G IPANEL #### [facility] [address] [place] [address] Dr. Vivi Stovall STEC Not detected Normal NOT DETECTED [facility] Comment on above: Performed By: #### G IPANEL #### [facility] [address] [place] [address] Dr. Vivi Stovall Vibrio Not detected Normal NOT DETECTED [facility] Comment on above: Performed By: #### G IPANEL #### [facility] [address] [place] [address] Dr. Vivi Stovall Vibrio Cholera Not detected Normal NOT DETECTED [facility] Comment on above: Performed By: #### G IPANEL #### [facility] [address] [place] [address] Dr. Vivi Stovall Y. Enterocolitica Not detected Normal NOT DETECTED [facility] Comment on above: Performed By: #### G IPANEL #### [facility] [address] [place] [address] Dr. Vivi Stovall GLYCOHEMOGLOBIN A1Con 2021 ADA RECOMMENDATION ADA THERAPEUTIC TARG ET 6.0 - 7.0 ACTION SUGGESTED > 7.0 Normal [facility] Comment on above: Performed By: #### A 1C #### [facility] [address] [place] [address] Dr. Vivi Stovall Glucose [Mass/Vol] 123 mg/dL Normal [facility] Comment on above: Performed By: #### A 1C #### [facility] [address] [place] [address] Dr. Vivi Stovall HbA1c (Bld) [Mass fraction] 5.9 % Normal <=6.0 [facility] Comment on above: Performed By: #### A 1C #### [facility] [address] [place] [address] Dr. Vivi Stovall IRONon 10-26-2021 Iron [Mass/Vol] 82.0 ug/dL Normal 37.0-170.0 [facility] Comment on above: Performed By: #### U AMIC #### [facility] [address] [address] [address] Vivi Stovall LIPID PROFILEon 10-26-2021 CHOL-HDL RATIO NORM SEE BELOW Normal [facility] Comment on above: Result Comment: 3.3 - 4.4 LOW RISK 4.4 - 7.1 AVERAGE RISK 7.1 - 11.0 MODERATE RISK >11.0 HIGH RISK Performed By: #### C MP, BNP, LIPID, T7, TSH #### [facility] [address] [address] [address] Vivi Stovall Cholesterol [Mass/Vol] 174 mg/dL Normal <=200 [facility] Comment on above: Performed By: #### C MP, BNP, LIPID, T7, TSH #### [facility] [address] [address] [address] Vivi Stovall Cholesterol in HDL [Mass/Vol] 34 mg/dL Critically low 40-60 [facility] Comment on above: Performed By: #### C MP, BNP, LIPID, T7, TSH #### [facility] [address] [address] [address] Vivi Stovall Cholesterol in LDL [Mass/Vol] 91.2 mg/dL Normal [facility] Comment on above: Performed By: #### C MP, BNP, LIPID, T7, TSH #### [facility] [address] [address] [address] Vivi Stovall Cholesterol.total/C holesterol in HDL [Mass ratio] 5.1 {ratio} Normal [facility] Comment on above: Performed By: #### C MP, BNP, LIPID, T7, TSH #### [facility] [address] [address] [address] Vivi Stovall HDL NORMAL > or = 60 mg/dl - LO W CARDIOVASCULAR RISK <40 mg/dl - HIGH CARDIOVASCULAR RISK Normal [facility] Comment on above: Performed By: #### C MP, BNP, LIPID, T7, TSH #### [facility] [address] [address] [address] Vivi Stovall LDL CALC NORMAL SEE BELOW Normal [facility] Comment on above: Result Comment: <100 mg/dl OPTIMAL 100 - 129 mg/dl NEAR OR ABOVE OPTIMAL 130 - 159 mg/dl BORDERLINE HIGH 160 - 189 mg/dl HIGH >190 mg/dl VERY HIGH Performed By: #### C MP, BNP, LIPID, T7, TSH #### [facility] [address], [place] [address] Dr. Vivi Stovall Triglyceride [Mass/Vol] 244 mg/dL Critically high <=150 [facility] Comment on above: Performed By: #### C MP, BNP, LIPID, T7, TSH #### [facility] [address], [place] [address] Dr. Vivi Stovall VLDL CALC 48.8 mg/dL Normal [facility] Comment on above: Performed By: #### C MP, BNP, LIPID, T7, TSH #### [facility] [address], [place] [address] Dr. Vivi Stovall NM STRESS/REST MULTIon 10-26 NM STRESS/REST MULTI Patient: AMANDA KISER Exam Date: 10/26/2021 : 1945 Gender:F Ordering : DR NORMAN PORTER . Admission #: [id number] Family : Order #: [id number] CLICK HERE TO VIEW EXAM RADIOLOGY REPORT PROCEDURE: RADIONUCLIDE IMAGING STRESS/REST MULTI COMPARISON: None. INDICATIONS: Atherosclerosis of coronary artery without angina pectoris, excessive sweating, hypertension TECHNIQUE: Exam Description: Stress/Rest one day protocol gated SPECT Rest Imagin.4 mCi Tc-99m Cardiolite IV on 10/26/2021 Stress Imaging 30.4 mCi Tc-99m Cardiolite IV on 10/26/2021 Exercise Protocol: 0.4 mg Lexiscan given IV Heart Rate (bpm): Rest: 51 Max: 76 PMHR: 53 Blood Pressure: Rest: 152/86 Max: 156/80 Symptoms: Rest and peak stress ECG findings were normal and the exercise portion of the study was normal per attending physician Dr. De La Torre . For more details please see separate cardiac stress test report. FINDINGS: QUALITY OF STUDY: Excellent. PERFUSION DEFECT: None. LOCATION: N/A SIZE: N/A. SEVERITY: N/A. TYPE: N/A. WALL MOTION: LV SIZE: Normal. 69 mL. TID / TCD: None; 0.8 LVEF: Normal. Calculated EF 72%. SUMMARY: Myocardial perfusion imaging study is NORMAL. CONCLUSION: 1. No reversible ischemia 2. Normal exercise test Dictated by: Dimitrios Art MD on 10/27/2021 at 08:51 Approved by: Dimitrios Art MD on 10/27/2021 at 08:53 Normal [facility] PROF 14(COMP METB)on 022 Albumin [Mass/Vol] 3.9 g/dL Normal 3.4-5.0 [facility] Comment on above: Performed By: #### C MP, BNP, LIPID, T7, TSH #### [facility] [address] [place] [address] Dr. Vivi Stovall Albumin/Globulin [Mass ratio] 1.2 {ratio} Normal [facility] Comment on above: Performed By: #### C MP, BNP, LIPID, T7, TSH #### [facility] [address] [place] [address] Dr. Vivi Stovall ALP [Catalytic activity/Vol] 73 U/L Normal 46-116 [facility] Comment on above: Performed By: #### C MP, BNP, LIPID, T7, TSH #### [facility] [address] [place] [address] Dr. Vivi Stovall ALT [Catalytic activity/Vol] 22 U/L Normal 14-59 [facility] Comment on above: Performed By: #### C MP, BNP, LIPID, T7, TSH #### [facility] [address] [place] [address] Dr. Vivi Stovall Anion gap [Moles/Vol] 16.0 mmol/L Normal [facility] Comment on above: Performed By: #### C MP, BNP, LIPID, T7, TSH #### [facility] [address] [place] [address] Dr. Vivi Stovall AST [Catalytic activity/Vol] 18 U/L Normal 15-37 [facility] Comment on above: Performed By: #### C MP, BNP, LIPID, T7, TSH #### [facility] [address] [place] [address] Dr. Vivi Stovall Bilirubin [Mass/Vol] 0.5 mg/dL Normal 0.2-1.3 [facility] Comment on above: Performed By: #### C MP, BNP, LIPID, T7, TSH #### [facility] [address] [address] [address] Vivi Stovall Calcium [Mass/Vol] 8.6 mg/dL Normal 8.5-10.1 [facility] Comment on above: Performed By: #### C MP, BNP, LIPID, T7, TSH #### [facility] [address] [address] [address] Vivi Stovall Chloride [Moles/Vol] 104 mmol/L Normal 98-107 [facility] Comment on above: Performed By: #### C MP, BNP, LIPID, T7, TSH #### [facility] [address] [address] [address] Vivi Stovall CO2 [Moles/Vol] 27.1 mmol/L Normal 22.0-30.0 [facility] Comment on above: Performed By: #### C MP, BNP, LIPID, T7, TSH #### [facility] [address] [address] [address] Vivi Stovall Creatinine [Mass/Vol] 0.99 mg/dL Normal 0.52-1.04 [facility] Comment on above: Performed By: #### C MP, BNP, LIPID, T7, TSH #### [facility] [address] [address] [address] Vivi Stovall EGFR-AF CITIZEN [place] >60 Normal >=60 [facility] Comment on above: Performed By: #### C MP, BNP, LIPID, T7, TSH #### [facility] [address] [address] [address] Vivi Stovall EGFR-NON AF CITIZEN OF [place] 54 mL/min/1.73m2 Critically low >=60 [facility] Comment on above: Performed By: #### C MP, BNP, LIPID, T7, TSH #### [facility] [address] [address] [address] Vivi Stovall Globulin (S) [Mass/Vol] 3.2 g/dL Normal [facility] Comment on above: Performed By: #### C MP, BNP, LIPID, T7, TSH #### [facility] [address] [place] [address] Dr. Vivi Stovall Glucose [Mass/Vol] 106 mg/dL Normal 74-106 [facility] Comment on above: Performed By: #### C MP, BNP, LIPID, T7, TSH #### [facility] [address] [place] [address] Dr. Vivi Stovall Potassium [Moles/Vol] 4.1 mmol/L Normal 3.4-5.0 [facility] Comment on above: Performed By: #### C MP, BNP, LIPID, T7, TSH #### [facility] [address] [place] [address] Dr. Vivi Stovall Protein [Mass/Vol] 7.1 g/dL Normal 6.1-8.2 [facility] Comment on above: Performed By: #### C MP, BNP, LIPID, T7, TSH #### [facility] [address] [place] [address] Dr. Vivi Stovall Sodium [Moles/Vol] 143 mmol/L Normal 137-145 [facility] Comment on above: Performed By: #### C MP, BNP, LIPID, T7, TSH #### [facility] [address] [place] [address] Dr. Vivi Stovall Urea nitrogen [Mass/Vol] 22.0 mg/dL Critically high 7.0-18.0 [facility] Comment on above: Performed By: #### C MP, BNP, LIPID, T7, TSH #### [facility] [address] [place] [address] Dr. Vivi Stovall Urea nitrogen/Creatinine [Mass ratio] 22.2 mg/mg Normal [facility] Comment on above: Performed By: #### C MP, BNP, LIPID, T7, TSH #### [facility] [address] [place] [address] Dr. Vivi Stovall TSHon 10-26-2021 TSH 5.412 uIU/mL Critically high 0.470-4.680 [facility] Comment on above: Performed By: #### C MP, BNP, LIPID, T7, TSH #### [facility] [address] [address] [address] Vivi Stovall TSH RANGE SEE BELOW Normal [facility] Comment on above: Result Comment: <0.3 4 UIU/ml HYPERTHYROID 0.34-5.60 UIU/ml EUTHYROID >5.60 UIU/ml HYPOTHYROID Performed By: #### C MP, BNP, LIPID, T7, TSH #### [facility] [address] [place] [address] Dr. Vivi Stovall UA RANDOM W/MICROSCOPICon BACTERIA LARGE Abnormal NONE SEEN [facility] Comment on above: Performed By: #### U AMIC #### [facility] [address] [place] [address] Dr. Vivi Stovall Bilirubin Ql (U) Negative Normal NEGATIVE [facility] Comment on above: Performed By: #### U AMIC #### [facility] [address] [place] [address] Dr. Vivi Stovall CAST NONE SEEN Normal NONE SEEN [facility] Comment on above: Performed By: #### U AMIC #### [facility] [address] [place] [address] Dr. Vivi Stovall Clarity (U) SL CLOUDY Abnormal CLEAR [facility] Comment on above: Performed By: #### U AMIC #### [facility] [address] [place] [address] Dr. Vivi Stovall Color (U) YELLOW Normal YELLOW [facility] Comment on above: Performed By: #### U AMIC #### [facility] [address] [place] [address] Dr. Vivi Stovall Crystals LM Nom (Urine sed) NONE SEEN Normal NONE SEEN [facility] Comment on above: Performed By: #### U AMIC #### [facility] [address] [place] [address] Dr. Vivi Stovall Epithelial cells LM Ql (Urine sed) MODERATE Abnormal NONE SEEN /RARE [facility] Comment on above: Performed By: #### U AMIC #### [facility] [address] [address] [address] Vivi Stovall Glucose Ql (U) Negative Normal NEGATIVE [facility] Comment on above: Performed By: #### U AMIC #### [facility] [address] [address] [address] Vivi Stovall Hemoglobin Ql (U) Negative Normal NEGATIVE [facility] Comment on above: Performed By: #### U AMIC #### [facility] [address] [address] [address] Vivi Stovall Ketones Ql (U) Negative Normal NEGATIVE [facility] Comment on above: Performed By: #### U AMIC #### [facility] [address] [address] [address] Vivi Stovall LEUKOCYTES SMALL Abnormal NEGATIVE [facility] Comment on above: Performed By: #### U AMIC #### [facility] [address] [address] [address] Vivi Stovall MUCOUS SMALL Abnormal NONE SEEN The [facility] Comment on above: Performed By: #### U AMIC #### [facility] [address] [address] [address] Vivi Stovall Nitrite Ql (U) Positive Abnormal NEGATIVE The [facility] Comment on above: Performed By: #### U AMIC #### [facility] [address] [place] [address] Dr. Vivi Stovall pH (U) 5.5 [pH] Normal 5-9 The [facility] Comment on above: Performed By: #### U AMIC #### [facility] [address] [place] [address] Dr. Vivi Stovall RBC NONE SEEN Abnormal 0-2 The [facility] Comment on above: Performed By: #### U AMIC #### [facility] [address] [address] [address] Vivi Stovall SPEC GRAVITY 1.025 Normal 1.005-<=1.025 The [facility] Comment on above: Performed By: #### U AMIC #### [facility] [address] [place] [address] Dr. Vivi Stovall UA PROTEIN Negative Normal NEGATIVE/ TRACE The [facility] Comment on above: Performed By: #### U AMIC #### [facility] [address] [address] [address] Vivi Stovall Urobilinogen Qn (U) 0.2 {Jazmyne'U}/dL Normal 0.2 - 1. 0 [facility] Comment on above: Performed By: #### U AMIC #### [facility] [address] [place] [address] Dr. Vivi Stovall WBC 5-10 Abnormal NONE SEEN [facility] Comment on above: Performed By: #### U AMIC #### [facility] [address] [place] [address] Dr. Vivi Stovall VITAMIN D 25 OHon 10-26-2021 VIT D 25-OH 30.3 ng/mL Normal [facility] Comment on above: Performed By: #### U AMIC #### [facility] [address] [place] [address] Dr. Vivi Stovall VIT D RANGES SEE BELOW Normal The [facility] Comment on above: Result Comment: <20 ng/mL Vit D deficient 20 - <30 ng/mL Vit D insufficient 30 - 100 ng/mL Vit D sufficient >100 ng/mL Potential Toxicity Performed By: #### U AMIC #### [facility] [address] [place] [address] Dr. Vivi Stovall ECHOCARDIO M/2D COMPLETEon 0 10-21-2021 ECHOCARDIO M/2D COMPLETE Patient: AMANDA KISER Exam Date: 10/21/2021 : 1945 Gender:F Ordering : DR NORMAN PORTER . Admission #: [id number] Family : Order #: [id number] CLICK HERE TO VIEW EXAM ECHOCARDIOGRAM REPORT PROCEDURE: CARDIO PULMONARY ECHOCARDIO M/2D COMP INDICATIONS: Chest pain, hypertension, s/p PTCA COMPARISON: None. DESCRIPTION: COMPLETE ECHOCARDIOGRAM Real-time transthoracic echocardiography with 2D, M-mode, spectral and color flow Doppler performed. QUALITY: Technical quality was good. LEFT VENTRICLE: Normal chamber size. Mild concentric left ventricular hypertrophy. Global left ventricular systolic function is normal. LV EF: Normal left ventricular ejection fraction, (>55%). DIASTOLIC: Grade I diastolic dysfunction. ATRIAL SEPTUM: Visually appears intact. LEFT ATRIUM: Normal chamber size. RIGHT ATRIUM: Normal chamber size. RIGHT VENTRICLE: Normal chamber size. Normal right ventricular systolic function. TRICUSPID VALVE: Normal mobility and thickness. No stenosis with trivial regurgitation. Doppler studies reveal moderately (45-60) elevated right sided pressures. RVSP 49 mmHg MITRAL VALVE: Normal mobility and thickness. No evidence of mitral valve stenosis. There is no mitral annular calcification. Trivial mitral regurgitation. AORTIC VALVE: Normal trileaflet appearance. No visible sclerosis. Normal leaflet mobility. No evidence of aortic valve stenosis. AORTIC ROOT: Normal diameter and appearance. Ascending aorta is normal in size. PULMONIC VALVE: Normal thickness and mobility. No stenosis. PERICARDIUM: No evidence of pericardial effusion. IVC: Collapses with inspirations. PLEURA: CONCLUSION: 1. Normal ventricular systolic function. LVEF is 60%. 2. Grade 1, mild diastolic dysfunction. 3. No significant valvular dysfunction. 4. Moderately elevated right-sided pressures. 5. No pericardial effusion. Adult Echocardiography Procedure Report Left Ventricle LVEDD (3.7 - 5.6 cm): 4.66 cm LVESD (2.2 - 4.0 cm): 3.16 cm LVIVS thickness (0.6 - 1.2 cm): 1.25 cm LVPW thickness (0.5 - 1.0 cm): 1.05 cm e': 6.91 cm/s E - e': 8.60 LVOT Area (cm2): 4.52 cm2 LVOT Diameter 2.40 cm Left Ventricular Ejection Fraction: 60 % Left Atrium LA Volume Index (2D A2C): 27.70 ml/m2 Left Atrium Systolic Dimension: 4.20 cm Left Atrium Systolic Area(A2C): 18.20 cm2 Left Atrium Systolic Volume(A2C): 30135 mm3 Mitral Valve MV E to A Ratio: 0.60 Mitral Valve A-Wave Peak Velocity: 92.80 cm/s Mitral Valve E-Wave Peak Velocity: 59.70 cm/s Deceleration Time: 351 ms Right Ventricle Aorta AO Root Diam: 3.50 cm Aortic Valve AoV Area (Peak Manfred): 2.97 cm2 Peak Velocity(Antegrade Flow): 114.00 cm/s Peak Gradient(Antegrade Flow): 5 mm[Hg] Tricuspid Valve Pulmonic Valve Peak Velocity: 91.70 cm/s Peak Gradient: 3 mm[Hg] Right Atrium Dictated by: Brandon Vickers M.D. on 10/21/2021 at 11:13 Approved by: Brandon Vickers M.D. on 10/21/2021 at 11:16 Normal The [facility] Covid-19 PCR (CVDTBH)on SARS-CoV-2 (COVID-19) RNA ASHKAN+probe Ql (Unsp spec) Not detected Normal NOT DETECTED The [facility] Comment on above: Result Comment: This test is not yet approved or cleared by the [place] FDA. When there are no FDA-approved or cleared tests available, and other criteria are met, FDA can make tests available under an emergency access mechanism called an Emergency Use Authorization (EUA). The EUA for this test is supported by the [employer] of Health and Human Service's (HHS's) declaration that circumstances exist to justify the emergency use of in vitro diagnostics for the detection and/or diagnosis of the virus that causes COVID-19. This EUA will remain in effect (meaning this test can be used) for the duration of the COVID-19 declaration justifying emergency of IVDs, unless it is terminated or revoked by FDA (after which the test may no longer be used). When diagnostic testing is negative, the possibility of a false negative should be considered in the context of a patient's recent exposures and the presence of clinical signs and symptoms consistent with SARS-CoV-2. Performed By: #### A 1C #### [facility] [address] [place] [address] Dr. Vivi Stovall Covid-19 PCR (CVDTB)on SARS-CoV-2 (COVID-19) RNA ASHKAN+probe Ql (Unsp spec) Not detected Normal NOT DETECTED The [facility] Comment on above: Result Comment: This test is not yet approved or cleared by the [place] FDA. When there are no FDA-approved or cleared tests available, and other criteria are met, FDA can make tests available under an emergency access mechanism called an Emergency Use Authorization (EUA). The EUA for this test is supported by the [place] of Health and Human Service's (HHS's) declaration that circumstances exist to justify the emergency use of in vitro diagnostics for the detection and/or diagnosis of the virus that causes COVID-19. This EUA will remain in effect (meaning this test can be used) for the duration of the COVID-19 declaration justifying emergency of IVDs, unless it is terminated or revoked by FDA (after which the test may no longer be used). When diagnostic testing is negative, the possibility of a false negative should be considered in the context of a patient's recent exposures and the presence of clinical signs and symptoms consistent with SARS-CoV-2. Performed By: #### [facility] #### [facility] [address] [place] [address] Dr. Vivi Stovall Encounters Encounter Date Encounter Type Care Provider Facility Start: 04-04-2023 End: 04-05-2023 ambulatory Roberto HERRING Facility:CD:[id number] Start: 02-13-2023 End: 02-14-2023 [facility] Start: 02-06-2023 ambulatory Norman Porter Facility:[facility] Start: 02-01-2023 [facility]ulatory [facility] Start: 03-22-2022 End: 03-23-[address] NORMAN PORTER Facility:[facility] Start: 03-13-2022 End: 03-13-[address] NORMAN PORTER Facility:[facility] Start: 12-26-2021 End: 12-27-[address] NORMAN PORTER Facility:[facility] Start: 12-01-2021 End: 12-02-[address] NORMAN PORTER Facility:[facility] Start: 10-27-2021 End: 10-27-[address] NORMAN PORTER Facility:[facility] Start: 10-26-2021 End: 10-27-[address] NORMAN PORTER Facility:[facility] Start: 10-21-2021 End: 10-22-[address] NORMAN PORTER Facility:[facility] Start: 09-22-2021 End: 09-23-[address] NORMAN PORTER Facility:[facility] Start: 06-28-2021 End: 06-28-[address] NORMAN PORTER Facility:[facility] Payers Date Payer Category Payer Medicare [id number] 1960 Unknown [id number] 1945 Unknown [id number] 2.16.84 [id number] 1945 Unknown [id number] 2.16.84 [id number] 1945 Unknown [id number] 2.16.84 [id number] 1945 Unknown [id number] 2.16.84 [id number] 1945 Unknown [id number] 2.16.84 [id number] 1945 Unknown [id number] 2.16.84 [id number] 1945 Unknown [id number] 2.16.84 [id number] 1945 Unknown [id number] 2.16.84 [id number] 1945 Unknown [id number] 2.16.84 [id number] 1945 Unknown [id number] 2.16.8 [id number] 1945 Unknown [id number] 2.16.8 [id number] 1945 Unknown [id number] 2.16.8 [id number] Clinical Note 02-13-2023 Note Date & Type Note Facility 02-13-2023 Note Chief Complaint consultation for surveillance colonoscopy HPI Staff 77 year old female presents on consultation from Dr. Porter for surveillance colonoscopy. Last colonoscopy completed 06/2018 with diverticulosis. Patient with history of colon polyps. No known family history of colon cancer. Denies abdominal or rectal pain. No rectal bleeding or change in bowel habits. Denies nausea or vomiting. No unexplained weight loss. History of Present Illness 77 yo female with h/o CAD, htn, hypercholesterolemia, CHF, referred for surveillance colonoscopy; patient with h/o adenomatous colon polyps; last colonoscopy 2017 with diverticulosis; denies change in bms or blood in stools, no abd complaints; abd operations significant for tubal ligation; no asa or NSAID use; no SBE prophylaxis; no fmhx of colon cancer; sister with pancreatic cancer; no fmhx of IBD; no tobacco use. Review of Systems PHQ Score Initial Depression Screen Score: 0 ROS - Provider Constitutional: no fever, no sweats, no weight loss. Eyes: yes glasses, no blurred vision, no visual loss. ENMT: no dentures, no hoarseness, no swallowing difficulties, no hearing loss, no ear infection(s), no nose bleeds. Cardiovascular: normal blood pressure, no chest pain, regular heartbeat, no heart murmur. Respiratory: no shortness of breath, no cough, no asthma, no wheezing. Gastrointestinal: no nausea, no vomiting, no diarrhea, no constipation, no blood in stool, no change in bowel habits, no abdominal pain, no hepatitis. Genitourinary: no kidney stones, no urine infection, no dysuria. Musculoskeletal: no pain, no weakness. Skin: no changing moles, no rash, no skin lumps. Neurologic: no seizures, no epilepsy, no headache. Psychiatric: no emotional or psychiatric problem. Heme/Lymph: no bleeding problems, no anemia, no blood clots, no transfusions. Allergy/Immunologic: no swollen lymph nodes/glands, no IV drug abuse. Other: Additional ROS info: Except as noted in the above Review of Systems and in the History of Present Illness, all other systems have been reviewed and are negative or noncontributory. Physical Exam Vitals & Measurements HR: 72(Peripheral) RR: 16 BP: 118/72 HT: 66 in HT: 167.6 cm WT: 80.4 kg WT: 176.88 lb BMI: 28.62 HEENT: normal conjunctiva, sclera clear, no scleral icterus, EOM intact, PERRLA, oral mucosa moist without lesions. Neck: trachea midline, no mass, symmetric, no thyromegaly or nodules, no adenopathy Respiratory: lungs CTA, respirations non labored. Cardiovascular: regular rate and rhythm, no murmur, no pedal edema or varicosities. Gastrointestinal: obese, soft, non distended, no tenderness, no masses, no palpable hernias, diastasis recti no, no hepatosplenomegaly; normal bs Lymphatic: no cervical adenopathy, no supraclavicular adenopathy. Musculoskeletal: normal gait, digits and nails without infection, nodes, cyanosis, clubbing. Skin: no rashes, no lesions, no ulcers, no subcutaneous nodules, induration. Psychiatric/Neuro: oriented to time, place, person, judgement normal, affect appropriate for age, insight intact, no focal deficits. Tests: review of old records completed, Discussed surgical options, risks, and possible complications with patient. Assessment/Plan 1. Personal history of colonic polyps (Z86.010: Personal history of colonic polyps) plan colonoscopy under anesthesia, informed consent obtained. Follow-up No qualifying data available Problem List/Past Medical History Ongoing Anemia BMI 28.0-28.9,adult Chronic diarrhea Coronary artery disease Diastolic CHF Eczema Essential hypertension Generalized hyperhidrosis History of colon polyps History of pulmonary embolism Hypertensive heart disease with heart failure Osteopenia Overweight Personal history of colonic polyps Poor short term memory Pure hypercholesterolemia Historical No qualifying data Procedure/Surgical History Colonoscopy (07/03/2018), Angioplasty, Colonoscopy, Placement of stent in cardiac conduit, Tubal ligation. Medications diclofenac sodium 75 mg Oral EC Tab, 75 mg= 1 tab(s), Oral, BID donepezil 10 mg oral tablet, disintegrating, 10 mg= 1 tab(s), Oral, Once a day (at bedtime) Flonase 0.05 mg/inh Shushan, 1 spray(s), Nasal, BID FLUoxetine 20 mg Cap, 20 mg= 1 cap(s), Oral, Daily hyoscyamine 0.125 mg oral tablet, disintegrating, 1-2 tabs, Oral, QID, PRN liothyronine 5 mcg Tab, 5 mcg= 1 tab(s), Oral, Daily metoprolol tartrate 100 mg Tab, 100 mg= 1 tab(s), Oral, BID Protonix 40 mg Tab-DR, 40 mg= 1 tab(s), Oral, Daily simvastatin 40 mg Tab, 40 mg= 1 tab(s), Oral, qPM Allergies Namenda (Unknown) Social History Alcohol - Denies Alcohol Use, 02/13/2023 Substance Abuse - Denies Substance Abuse, 02/13/2023 Tobacco Never (less than 100 in lifetime) Tobacco Use:. Never Smokeless Tobacco Use:., 02/13/2023 Family History COPD: Brother. Heart disease: Mother and Father. Pancreatic adenocarcinoma: Sister. Immuni (more content not included)... [facility] Comment on above: Result Comment: Elec tronically Signed By: NIMA REEVES, Roberto Bowman\Date and Time Signed: 02/13/23 13:48 EDT Summary Purpose Family History No Family History Records FoundNo Family History Records Found Advance Directives No Advanced Directives Records FoundNo Advanced Directives Records Found Additional Source Comments INFORMATION SOURCE (unrecogn ized section and content) DATE CREATED AUTHOR 06/23/2022 [facility] DATE CREATED AUTHOR AUTHOR'S ORGANIZ ATION 04/25/2023 [facility] FOR RECORDS PERTAINING TO PATIENTS WHO ARE OR HAVE BEEN ENROLLED IN A CHEMICAL DEPENDENCY/SUBSTANCEABUSE PROGRAM, SOME INFORMATION MAY BE OMITTED. This clinical summary was aggregated from multiple sources. Caution should be exercised in using it in the provision of clinical care. This summary normalizes information from multiple sources, and as a consequence, information in this document may materially change the coding, format and clinical context of patient data. In addition, data may be omitted in some cases. CLINICAL DECISIONS SHOULD BE BASED ON THE PRIMARY CLINICAL RECORDS. [email or web address] provides no warranty or guarantee of the accuracy or completeness of information in this document.
== END 2024-06-25 11:33 | disposition home or self-care (01) ==
LOC: MAMMO 11:32
PROVIDERS: PCP Family Medicine; Visit Provider Family Medicine
DX: Z12.31 Encounter for screening mammogram for malignant neoplasm of breast (principal); Z80.8 Family history of malignant neoplasm of other organs or systems
CPT/HCPCS: 77063; 77067